=== PATIENT | male | born 1965 | race Caucasian/White ===

== ENCOUNTER 2017-07-29 11:34 | Inpatient (IN) | payer OTHER ==
[2017-07-29 13:21] VITALS: BMI 23.9
--- NOTE | 2017-07-29 15:41 | HP ---
CIWA Score - CIWA Score Nausea/Vomitin Muscle Tremors: 5 Anxiety: 4-Mod. Anxious/Guarded Agitation: 5 Paroxysmal Sweats: 1-Minimal Palms Moist Orientation: 0-Oriented Tacttile Disturbances: 1-Very Mild Itch/Numbness Auditory Disturbances: 0-None Visual Disturbances: 0-None Headache: 2-Mild CIWA-Ar Total Score: 20 Admission ROS BHS - HPI Chief Complaint: withdrawal sx Allergies/Adverse Reactions: Allergies Allergy/AdvReac Type Severity Reaction Status Date / Time No Known Allergies Allergy Verified 07/29/17 15:05 History of Present Illness: 52 years old male with long history of alcohol nicotine dependence has gerd anxiety and depression is admitted to detox Exam Limitations: No Limitations - Ebola screening Have you traveled outside of the country in the last 21 days: No Have you had contact with anyone from an Ebola affected area: No Have you been sick,other than usual withdrawal symptoms: No Do you have a fever: No - Review of Systems Constitutional: Loss of Appetite, Changes in sleep, Unintentional Wgt. Loss, Unexplained wgt Loss EENT: reports: Blurred Vision (eye glasses) Respiratory: reports: No Symptoms reported Cardiac: reports: No Symptoms Reported GI: reports: Nausea, Poor Appetite, Poor Fluid Intake, Vomiting, Indigestion, Abdominal cramping : reports: No Symptoms Reported Musculoskeletal: reports: No Symptoms Reported Integumentary: reports: No Symptoms Reported Neuro: reports: Tremors Endocrine: reports: No Symptoms Reported Hematology: reports: No Symptoms Reported Psychiatric: reports: Judgement Intact, Orientated x3, Anxious, Depressed Other Systems: Reviewed and Negative Patient History - Patient Medical History Hx Anemia: No Hx Asthma: No Hx Chronic Obstructive Pulmonary Disease (COPD): No Hx Cancer: No Hx Cardiac Disorders: No Hx Congestive Heart Failure: No Hx Hypertension: No Hx Hypercholesterolemia: No Hx Pacemaker: No HX Cerebrovascular Accident: No Hx Seizures: No Hx Dementia: No Hx Diabetes: No Hx Gastrointestinal Disorders: Yes (acid reflux) Hx Liver Disease: No Hx Genitourinary Disorders: No Hx Sexually Transmitted Disorders: No Hx Renal Disease (ESRD): No Hx Thyroid Disease: No Hx Human Immunodeficiency Virus (HIV): No Hx Hepatitis C: No Hx Depression: Yes Hx Suicide Attempt: No Hx Bipolar Disorder: No Hx Schizophrenia: No - Patient Surgical History Past Surgical History: No Hx Neurologic Surgery: No Hx Cataract Extraction: No Hx Cardiac Surgery: No Hx Lung Surgery: No Hx Breast Surgery: No Hx Breast Biopsy: No Hx Abdominal Surgery: No Hx Appendectomy: No Hx Cholecystectomy: No Hx Genitourinary Surgery: No Hx Orthopedic Surgery: No - PPD History Previous Implant?: Yes Documented Results: Negative w/proof Implanted On Prior [facility] Admission?: Yes Date: 11/15/15 Results: 0 mm PPD to be Administered?: Yes - Smoking Cessation Smoking history: Current every day smoker Have you smoked in the past 12 months: Yes Aproximately how many cigarettes per day: 10 Cigars Per Day: 0 Hx Chewing Tobacco Use: No Initiated information on smoking cessation: Yes 'Breaking Loose' booklet given: 07/29/17 - Substance & Tx. History Hx Alcohol Use: Yes Hx Substance Use: Yes Substance Use Type: Alcohol, Cocaine Hx Substance Use Treatment: Yes (06/2017 [facility]) - Substances Abused Cocaine Route: Inhalation Frequency: 1-3 times last 30 days Amount used: $20-30 Age of first use: 27 Date of Last Use: 07/27/17 Alcohol-vodka Route: Oral Frequency: Daily Amount used: 2 pts. Age of first use: 20 Date of Last Use: 07/28/17 Admission Physical Exam BHS - Vital Signs Vital Signs: Vital Signs - 24 hr 07/29/17 13:19 Temperature 97.9 F Pulse Rate 77 Respiratory 20 Rate Blood Pressure 151/91 - Physical General Appearance: Yes: Appropriately Dressed, Moderate Distress, Thin, Tremorous, Irritable, Sweating, Anxious HEENTM: Yes: Hearing grossly Normal, Normal ENT Inspection, Normocephalic, Normal Voice Respiratory: Yes: Chest Non-Tender, Lungs Clear, Normal Breath Sounds, No Respiratory Distress, No Accessory Muscle Use Neck: Yes: Supple, Trachea in good position Breast: Yes: Breasts Symetrical Cardiology: Yes: Regular Rhythm, Regular Rate, S1, S2 Abdominal: Yes: Normal Bowel Sounds, Non Tender, Soft Genitourinary: Yes: Within Normal Limits Back: Yes: Normal Inspection Musculoskeletal: Yes: full range of Motion, Gait Steady Extremities: Yes: Normal Range of Motion, Non-Tender, Tremors Neurological: Yes: Alert, Motor Strength 5/5, Normal Response, Depressed Affect Integumentary: Yes: Warm Lymphatic: Yes: Within Normal Limits - Diagnostic (1) Anxiety and depression Current Visit: Yes Status: Acute (2) Alcohol dependence with uncomplicated withdrawal Current Visit: Yes Status: Acute (3) GERD (gastroesophageal reflux disease) Current Visit: Yes Status: Chronic Qualifiers: Esophagitis presence: without esophagitis Qualified Code(s): K21.9 - Gastro -esophageal reflux disease without esophagitis (4) Nicotine dependence Current Visit: Yes Status: Acute Qualifiers: Nicotine product type: cigarettes Substance use status: in withdrawal Qualified Code(s): F17.213 - Nicotine dependence, cigarettes, with withdrawal Cleared for Admission S - Detox or Rehab [facility] Level of Care: Medically Managed Detox Regimen/Protocol: Librium [facility] Breath Alcohol Content Breath Alcohol Content: 0 Urine Drug Screen - Results Drug Screen Negative: No Urine Drug Screen Results: SOURAV-Cocaine
[2017-07-29] MEDS ORDERED: MENTHOL/PHENOL 1 EACH UD MM PRN (15:50)
[2017-07-29] MEDS ORDERED: MAGNESIUM CITRATE 300 ML BOTTLE PO PRN (15:50)
[2017-07-29] MEDS ORDERED: LOPERAMIDE HCL 2 MG CAPSULE PO PRN (15:50)
[2017-07-29] MEDS ORDERED: MAGNESIUM HYDROX 2400MG/30ML ORAL SUSPENSION 30 ML CUP PO PRN (15:50)
[2017-07-29] MEDS ORDERED: NICOTINE POLACRILEX 2 MG GUM BC PRN (15:50)
[2017-07-29] MEDS ORDERED: guaiFENesin/D-METHORPHAN HB 10 ML UNIT-DOSE CUPS PO PRN (15:50)
[2017-07-29] MEDS ORDERED: chlordiazePOXIDE HCL 25 MG CAPSULE PO PRN (15:50)
[2017-07-29] MEDS ORDERED: P-EPHED 60MG/TRIPROLIDI 2.5MG TABLET PO PRN (15:50)
[2017-07-29] MEDS ORDERED: ACETAMINOPHEN 325 MG TABLET (FP) PO PRN (15:50)
[2017-07-29] MEDS: chlordiazePOXIDE HCL 25 MG CAPSULE PO SCH (22:08)
[2017-07-29] MEDS: THIAMINE HCL 100 MG TABLET (FP) PO SCH (22:09)
[2017-07-29] MEDS: RANITIDINE HCL 150 MG TABLET (FP) PO SCH (22:47)
[2017-07-29] MEDS ORDERED: diphenhydrAMINE HCL 25 MG CAPSULE (FP) PO ONE (23:00)
[2017-07-29 23:12] LABS: URINE APPEARANCE TURBID; URINE BILIRUBIN NEGATIVE (NEGATIVE); URINE BLOOD NEGATIVE (NEGATIVE); URINE COLOR YELLOW; URINE GLUCOSE (UA) NEGATIVE (NEGATIVE); URINE KETONE NEGATIVE (NEGATIVE); URINE LEUK ESTERASE NEGATIVE (NEGATIVE); URINE NITRITE NEGATIVE (NEGATIVE); URINE PROTEIN NEGATIVE (NEGATIVE); URINE UROBILINOGEN NEGATIVE mg/dL (0.2-1.0)
[2017-07-30] MEDS: chlordiazePOXIDE HCL 25 MG CAPSULE PO SCH ×4 (06:26→22:05)
--- NOTE | 2017-07-30 09:13 | CONSULT ---
[facility] Psychiatric Consult - Data Date of interview: 07/30/17 Admission source: [facility] Identifying data: This is 52 years old male, single, father of one, homeless, on PA, with long history of alcohol and Nicotine dependence is admitted to detox Substance Abuse History: - Smoking Cessation. Smoking history: Current every day smoker. Have you smoked in the past 12 months: Yes. Aproximately how many cigarettes per day: 10. Cigars Per Day: 0. Hx Chewing Tobacco Use: No. Initiated information on smoking cessation: Yes. 'Breaking Loose' booklet given : 07/29/17. - Substance & Tx. History. Hx Alcohol Use: Yes. Hx Substance Use : Yes. Substance Use Type: Alcohol, Cocaine. Hx Substance Use Treatment: Yes ( 06/2017 [facility]). - Substances Abused. Cocaine. Route: Inhalation. Frequency: 1-3 times last 30 days. Amount used: $20-30. Age of first use: 27. Date of Last Use: 07/27/17. Alcohol-vodka. Route: Oral. Frequency: Daily. Amount used: 2 pts. Age of first use: 20. Date of Last Use: 07/28/17 Medical History: Denies past siginificant medical history. As per chart-GERD Psychiatric History: Patient reports history of anxiety and depression, denies past posychiatric hospitalzation history, reports taking prior to admission: Trazodone 100mg po qhs Physical/Sexual Abuse/Trauma History: Denies Additional Comment: Trazodone 100mg po qhs Mental Status Exam - Mental Status Exam Alert and Oriented to: Person Cognitive Function: Fair Patient Appearance: Unkempt Mood: Sad Affect: Mood Congruent Patient Behavior: Sedated Speech Pattern: Appropriate Voice Loudness: Mildly Soft/Quiet Thought Process: Circumstantial Thought Disorder: Being Controlled Hallucinations: Denies Suicidal Ideation: Denies Homicidal Ideation: Denies Insight/Judgement: Fair Sleep: Difficulty falling asleep Appetite: Fair Muscle strength/Tone: Mild Hypotonicity Gait/Station: Shuffling Additional Comments: Trazodone 100mg po qhs Psychiatric Findings - Problem List ([place] 1, 2,3) (1) Alcohol dependence with uncomplicated withdrawal Current Visit: Yes Status: Acute (2) Anxiety and depression Current Visit: Yes Status: Acute (3) Nicotine dependence Current Visit: Yes Status: Acute Qualifiers: Nicotine product type: cigarettes Substance use status: in withdrawal Qualified Code(s): F17.213 - Nicotine dependence, cigarettes, with withdrawal (4) Depression with anxiety Current Visit: No Status: Acute (5) Drug-induced mood disorder Current Visit: No Status: Acute - Initial Treatment Plan Initial Treatment Plan: Trazodone 100mg po qhs
--- NOTE | 2017-07-30 09:28 | PN ---
S CIWA - CIWA Score Nausea/Vomitin Muscle Tremors: 3 Anxiety: 3 Agitation: 3 Paroxysmal Sweats: 1-Minimal Palms Moist Orientation: 0-Oriented Tacttile Disturbances: 1-Very Mild Itch/Numbness Auditory Disturbances: 1-Very Mild Visual Disturbances: 1-Very Mild Sensitivity Headache: 2-Mild CIWA-Ar Total Score: 18 BHS Progress Note (SOAP) Subjective: ALERT,IRRITABLE,ANXIOUS,INTERRUPTED SLEEP,TREMOR Objective: 07/30/17 09:26 Vital Signs Temperature 98.1 F 07/30/17 06:00 Pulse Rate 76 07/30/17 06:00 Respiratory Rate 18 07/30/17 06:00 Blood Pressure 126/56 07/30/17 06:00 O2 Sat by Pulse Oximetry (%) Laboratory Last Values Urine Color Yellow 07/29/17 22:10 Urine Appearance Turbid 07/29/17 22:10 Urine pH 5.0 (5.0-8.0) 07/29/17 22:10 Ur Specific [place] 1.023 (1.001-1.035) 07/29/17 22:10 Urine Protein Negative (NEGATIVE) 07/29/17 22:10 Urine Glucose (UA) Negative (NEGATIVE) 07/29/17 22:10 Urine Ketones Negative (NEGATIVE) 07/29/17 22:10 Urine Blood Negative (NEGATIVE) 07/29/17 22:10 Urine Nitrite Negative (NEGATIVE) 07/29/17 22:10 Urine Bilirubin Negative (NEGATIVE) 07/29/17 22:10 Urine Urobilinogen Negative mg/dL (0.2-1.0) 07/29/17 22:10 Ur Leukocyte Esterase Negative (NEGATIVE) 07/29/17 22:10 LABS PENDING EKG NSR,NORMAL ECG Assessment: 07/30/17 09:27 WITHDRAWAL SYMPTOM Plan: CONTINUE DETOX
[2017-07-30] MEDS: PRENATAL VITAMINS W/ FOLIC ACID TABLET (FP) PO SCH (10:23)
[2017-07-30 10:24] LABS: CHLORIDE 106 mmol/L (98-107); POTASSIUM 3.9 mmol/L (3.5-5.1); SODIUM 142 mmol/L (136-145)
[2017-07-30] MEDS: RANITIDINE HCL 150 MG TABLET (FP) PO SCH ×2 (10:24→22:04)
[2017-07-30] MEDS: NICOTINE 14 MG/24 HOURS TOPICAL PATCH TD SCH (10:24)
[2017-07-30 10:25] LABS: HEMATOCRIT 40.4 % (35.4-49); HEMOGLOBIN 13.5 GM/dL (11.7-16.9); MCHC 33.4 g/dl (32.0-35.9); MEAN CELL VOLUME 92.8 fl (80-96); PLATELET COUNT 229 K/MM3 (134-434); RBC 4.36 M/mm3 (4.00-5.60); WHITE BLOOD COUNT 8.6 K/mm3 (4.0-10.0)
[2017-07-30 10:39] LABS: ALBUMIN 3.5 g/dl (3.4-5.0); ALK PHOS 69 U/L (45-117); ANION GAP 7 (8-16); BILIRUBIN,TOTAL 1.1 mg/dL (0.2-1.0); BLOOD UREA NITROGEN 13 mg/dL (7-18); CALCIUM 8.6 mg/dL (8.5-10.1); CO2 29 mmol/L (21-32); CREATININE 0.9 mg/dL (0.7-1.3); GLUCOSE,RANDOM 92 mg/dL (74-106); SGOT/AST 15 U/L (15-37); SGPT/ALT 24 U/L (12-78); TOT PROT 6.2 g/dl (6.4-8.2)
--- NOTE | 2017-07-30 11:54 | EKG ---
Test Reason : Blood Pressure : / mmHG Vent. Rate : 092 BPM Atrial Rate : 092 BPM P-R Int : 148 ms QRS Dur : 092 ms QT Int : 354 ms P-R-T Axes : 058 023 062 degrees QTc Int : 437 ms NORMAL SINUS RHYTHM NORMAL ECG NO PREVIOUS ECGS AVAILABLE Confirmed by CORRINA ORTEGA MD ([id number]) on 07/30/2017 11:54:16 AM Referred By: Confirmed By:CORRINA ORTEGA MD
[2017-07-30] MEDS: MAG HYDROX/AL HYDROX/SIMETH 30 ML UNIT-DOSE CUP PO PRN (17:21)
[2017-07-30] MEDS: THIAMINE HCL 100 MG TABLET (FP) PO SCH (22:04)
[2017-07-30] MEDS: traZODone HCL 100 MG TABLET (FP) PO SCH (22:04)
[2017-07-31] MEDS: chlordiazePOXIDE HCL 25 MG CAPSULE PO SCH ×3 (05:56→17:36)
--- NOTE | 2017-07-31 09:44 | PN ---
S CIWA - CIWA Score Nausea/Vomitin Muscle Tremors: 3 Anxiety: 3 Agitation: 3 Paroxysmal Sweats: 1-Minimal Palms Moist Orientation: 0-Oriented Tacttile Disturbances: 1-Very Mild Itch/Numbness Auditory Disturbances: 1-Very Mild Visual Disturbances: 1-Very Mild Sensitivity Headache: 2-Mild CIWA-Ar Total Score: 18 BHS Progress Note (SOAP) Subjective: alert,irritable,anxious,interrupted sleep,tremor Objective: 07/31/17 09:43 Vital Signs Temperature 97.5 F L 07/31/17 06:00 Pulse Rate 79 07/31/17 06:00 Respiratory Rate 18 07/31/17 06:00 Blood Pressure 109/65 07/31/17 06:00 O2 Sat by Pulse Oximetry (%) Laboratory Last Values WBC 8.6 K/mm3 (4.0-10.0) 07/30/17 07:00 RBC 4.36 M/mm3 (4.00-5.60) 07/30/17 07:00 Hgb 13.5 GM/dL (11.7-16.9) 07/30/17 07:00 Hct 40.4 % (35.4-49) 07/30/17 07:00 MCV 92.8 fl (80-96) 07/30/17 07:00 MCH 31.0 pg (25.7-33.7) 07/30/17 07:00 MCHC 33.4 g/dl (32.0-35.9) 07/30/17 07:00 RDW 13.0 % (11.9-15.9) D 07/30/17 07:00 Plt Count 229 K/MM3 (134-434) 07/30/17 07:00 MPV 7.0 fl (7.5-11.1) L 07/30/17 07:00 Sodium 142 mmol/L (136-145) 07/30/17 07:00 Potassium 3.9 mmol/L (3.5-5.1) 07/30/17 07:00 Chloride 106 mmol/L (98-107) 07/30/17 07:00 Carbon Dioxide 29 mmol/L (21-32) 07/30/17 07:00 Anion Gap 7 (8-16) L 07/30/17 07:00 BUN 13 mg/dL (7-18) D 07/30/17 07:00 Creatinine 0.9 mg/dL (0.7-1.3) 07/30/17 07:00 Creat Clearance w eGFR > 60 (>60) 07/30/17 07:00 Random Glucose 92 mg/dL (74-106) 07/30/17 07:00 Calcium 8.6 mg/dL (8.5-10.1) 07/30/17 07:00 Total Bilirubin 1.1 mg/dL (0.2-1.0) H 07/30/17 07:00 AST 15 U/L (15-37) D 07/30/17 07:00 ALT 24 U/L (12-78) D 07/30/17 07:00 Alkaline Phosphatase 69 U/L (45-117) 07/30/17 07:00 Total Protein 6.2 g/dl (6.4-8.2) L 07/30/17 07:00 Albumin 3.5 g/dl (3.4-5.0) 07/30/17 07:00 Urine Color Yellow 07/29/17 22:10 Urine Appearance Turbid 07/29/17 22:10 Urine pH 5.0 (5.0-8.0) 07/29/17 22:10 Ur Specific [place] 1.023 (1.001-1.035) 07/29/17 22:10 Urine Protein Negative (NEGATIVE) 07/29/17 22:10 Urine Glucose (UA) Negative (NEGATIVE) 07/29/17 22:10 Urine Ketones Negative (NEGATIVE) 07/29/17 22:10 Urine Blood Negative (NEGATIVE) 07/29/17 22:10 Urine Nitrite Negative (NEGATIVE) 07/29/17 22:10 Urine Bilirubin Negative (NEGATIVE) 07/29/17 22:10 Urine Urobilinogen Negative mg/dL (0.2-1.0) 07/29/17 22:10 Ur Leukocyte Esterase Negative (NEGATIVE) 07/29/17 22:10 RPR Titer Nonreactive (NONREACTIVE) 07/30/17 07:00 Assessment: 07/31/17 09:43 withdrawal symptom Plan: continue detox
[2017-07-31] MEDS: RANITIDINE HCL 150 MG TABLET (FP) PO SCH ×2 (10:05→21:59)
[2017-07-31] MEDS: PRENATAL VITAMINS W/ FOLIC ACID TABLET (FP) PO SCH (10:05)
[2017-07-31] MEDS: MAG HYDROX/AL HYDROX/SIMETH 30 ML UNIT-DOSE CUP PO PRN ×2 (10:06→22:02)
[2017-07-31] MEDS: NICOTINE 14 MG/24 HOURS TOPICAL PATCH TD SCH (10:06)
[2017-07-31] MEDS: chlordiazePOXIDE 5 MG CAPSULE PO SCH (21:59)
[2017-07-31] MEDS: THIAMINE HCL 100 MG TABLET (FP) PO SCH (21:59)
[2017-07-31] MEDS: traZODone HCL 100 MG TABLET (FP) PO SCH (22:01)
[2017-08-01] MEDS: chlordiazePOXIDE 5 MG CAPSULE PO SCH ×3 (05:42→17:37)
[2017-08-01] MEDS: MAG HYDROX/AL HYDROX/SIMETH 30 ML UNIT-DOSE CUP PO PRN (05:43)
--- NOTE | 2017-08-01 09:03 | PN ---
BHS Progress Note (SOAP) Subjective: ALERT,IRRITABLE,ANXIOUS,INTERRUPTED SLEEP,PAIN IN THE BODY Objective: 08/01/17 09:02 Vital Signs Temperature 97.9 F 08/01/17 06:43 Pulse Rate 65 08/01/17 06:43 Respiratory Rate 18 08/01/17 06:43 Blood Pressure 113/76 08/01/17 06:43 O2 Sat by Pulse Oximetry (%) Assessment: 08/01/17 09:02 WITHDRAWAL SYMPTOM Plan: CONTINUE DETOX
[2017-08-01] MEDS: RANITIDINE HCL 150 MG TABLET (FP) PO SCH ×2 (10:10→22:06)
[2017-08-01] MEDS: PRENATAL VITAMINS W/ FOLIC ACID TABLET (FP) PO SCH (10:10)
[2017-08-01] MEDS: NICOTINE 14 MG/24 HOURS TOPICAL PATCH TD SCH (10:10)
[2017-08-01] MEDS: chlordiazePOXIDE HCL 10 MG CAPSULE PO SCH (22:06)
[2017-08-01] MEDS: THIAMINE HCL 100 MG TABLET (FP) PO SCH (22:06)
[2017-08-01] MEDS: traZODone HCL 100 MG TABLET (FP) PO SCH (22:06)
[2017-08-02] MEDS: chlordiazePOXIDE HCL 10 MG CAPSULE PO SCH ×3 (05:46→18:29)
[2017-08-02] MEDS: MAG HYDROX/AL HYDROX/SIMETH 30 ML UNIT-DOSE CUP PO PRN (05:46)
--- NOTE | 2017-08-02 08:38 | PN ---
S Progress Note (SOAP) Subjective: mild tremor less sweat alert oriented x 3 tolerates food and fluid well Objective: 08/02/17 08:36 Vital Signs Temperature 97.1 F L 08/02/17 06:00 Pulse Rate 67 08/02/17 06:00 Respiratory Rate 18 08/02/17 06:00 Blood Pressure 116/69 08/02/17 06:00 O2 Sat by Pulse Oximetry (%) Laboratory Last Values WBC 8.6 K/mm3 (4.0-10.0) 07/30/17 07:00 RBC 4.36 M/mm3 (4.00-5.60) 07/30/17 07:00 Hgb 13.5 GM/dL (11.7-16.9) 07/30/17 07:00 Hct 40.4 % (35.4-49) 07/30/17 07:00 MCV 92.8 fl (80-96) 07/30/17 07:00 MCH 31.0 pg (25.7-33.7) 07/30/17 07:00 MCHC 33.4 g/dl (32.0-35.9) 07/30/17 07:00 RDW 13.0 % (11.9-15.9) D 07/30/17 07:00 Plt Count 229 K/MM3 (134-434) 07/30/17 07:00 MPV 7.0 fl (7.5-11.1) L 07/30/17 07:00 Sodium 142 mmol/L (136-145) 07/30/17 07:00 Potassium 3.9 mmol/L (3.5-5.1) 07/30/17 07:00 Chloride 106 mmol/L (98-107) 07/30/17 07:00 Carbon Dioxide 29 mmol/L (21-32) 07/30/17 07:00 Anion Gap 7 (8-16) L 07/30/17 07:00 BUN 13 mg/dL (7-18) D 07/30/17 07:00 Creatinine 0.9 mg/dL (0.7-1.3) 07/30/17 07:00 Creat Clearance w eGFR > 60 (>60) 07/30/17 07:00 Random Glucose 92 mg/dL (74-106) 07/30/17 07:00 Calcium 8.6 mg/dL (8.5-10.1) 07/30/17 07:00 Total Bilirubin 1.1 mg/dL (0.2-1.0) H 07/30/17 07:00 AST 15 U/L (15-37) D 07/30/17 07:00 ALT 24 U/L (12-78) D 07/30/17 07:00 Alkaline Phosphatase 69 U/L (45-117) 07/30/17 07:00 Total Protein 6.2 g/dl (6.4-8.2) L 07/30/17 07:00 Albumin 3.5 g/dl (3.4-5.0) 07/30/17 07:00 Urine Color Yellow 07/29/17 22:10 Urine Appearance Turbid 07/29/17 22:10 Urine pH 5.0 (5.0-8.0) 07/29/17 22:10 Ur Specific [place] 1.023 (1.001-1.035) 07/29/17 22:10 Urine Protein Negative (NEGATIVE) 07/29/17 22:10 Urine Glucose (UA) Negative (NEGATIVE) 07/29/17 22:10 Urine Ketones Negative (NEGATIVE) 07/29/17 22:10 Urine Blood Negative (NEGATIVE) 07/29/17 22:10 Urine Nitrite Negative (NEGATIVE) 07/29/17 22:10 Urine Bilirubin Negative (NEGATIVE) 07/29/17 22:10 Urine Urobilinogen Negative mg/dL (0.2-1.0) 07/29/17 22:10 Ur Leukocyte Esterase Negative (NEGATIVE) 07/29/17 22:10 RPR Titer Nonreactive (NONREACTIVE) 07/30/17 07:00 lab noted Assessment: 08/02/17 08:37 mild withdrawal sx Plan: medically supervised detox
[2017-08-02] MEDS: RANITIDINE HCL 150 MG TABLET (FP) PO SCH ×2 (11:52→22:35)
[2017-08-02] MEDS: PRENATAL VITAMINS W/ FOLIC ACID TABLET (FP) PO SCH (11:52)
[2017-08-02] MEDS: NICOTINE 14 MG/24 HOURS TOPICAL PATCH TD SCH (11:52)
[2017-08-02] MEDS: traZODone HCL 100 MG TABLET (FP) PO SCH (22:35)
[2017-08-02] MEDS: THIAMINE HCL 100 MG TABLET (FP) PO SCH (22:35)
[2017-08-03 06:34] VITALS: BP 128/79; PULSE 71; TEMP 98.1
--- NOTE | 2017-08-03 08:22 | DS ---
[facility] Detox Discharge Summary Admission Date: 07/29/17 Discharge Date: 08/03/17 - History Present History: Alcohol Dependence Additional Comments: follow up with after care program as arrangement Pertinent Past History: nicotine dependence anxiety and depression - Physical Exam Results Vital Signs: Vital Signs Temperature 98.1 F 08/03/17 06:00 Pulse Rate 71 08/03/17 06:00 Respiratory Rate 18 08/03/17 06:00 Blood Pressure 128/79 08/03/17 06:00 O2 Sat by Pulse Oximetry (%) Pertinent Admission Physical Exam Findings: withdrawal symptom and sign - Treatment Hospital Course: Detox Protocol Followed, Detoxed Safely, Responded well, Discharged Condition Good, Rehab Referral Accepted Patient has Accept[facility] - Medication Discharge Medications: Ambulatory Orders traZODone HCL [Desyrel -] 100 mg PO HS #30 tablet 07/30/17 - Diagnosis (1) Alcohol dependence with uncomplicated withdrawal Current Visit: Yes Status: Acute (2) Anxiety and depression Current Visit: Yes Status: Suspected (3) Nicotine dependence Current Visit: Yes Status: Acute Qualifiers: Nicotine product type: cigarettes Substance use status: in withdrawal Qualified Code(s): F17.213 - Nicotine dependence, cigarettes, with withdrawal (4) GERD (gastroesophageal reflux disease) Current Visit: Yes Status: Chronic Qualifiers: Esophagitis presence: without esophagitis Qualified Code(s): K21.9 - Gastro -esophageal reflux disease without esophagitis - AMA Did Patient Leave Against Medical Advice: No
[2017-08-03] MEDS: PRENATAL VITAMINS W/ FOLIC ACID TABLET (FP) PO SCH (10:26)
[2017-08-03] MEDS: NICOTINE 14 MG/24 HOURS TOPICAL PATCH TD SCH (10:27)
[2017-08-03] MEDS: RANITIDINE HCL 150 MG TABLET (FP) PO SCH (10:27)
== END 2017-08-03 10:55 | disposition other institution (70) | DRG 775 ==
LOC: YASAS 11:34 → Y6N 15:49
PROVIDERS: ADMIT Internal Medicine; ATTEND Internal Medicine
PROC: HZ2ZZZZ Detoxification Services for Substance Abuse Treatment (ICD-10-PCS; principal; 2017-07-29)
DX: F10.230 Alcohol dependence with withdrawal, uncomplicated (principal); F17.213 Nicotine dependence, cigarettes, with withdrawal; F41.8 Other specified anxiety disorders; F19.24 Other psychoactive substance dependence with psychoactive substance-induced mood disorder; K21.9 Gastro-esophageal reflux disease without esophagitis
CPT/HCPCS: 36415; 80053; 81003; 85027; 86593; 93005; 93010

== ENCOUNTER 2017-08-03 11:16 | Inpatient (IN) | payer OTHER ==
--- NOTE | 2017-08-03 12:53 | HP ---
[facility] Re[facility] Assess/Revision - Admission History Admitted to Rehab from: [facility] Date of Admission to Rehab: 08/03/17 - Vital signs Vital Signs: Vital Signs Period Temp Pulse Resp BP Sys/Pearce Pulse Ox Last 24 Hr 98.3 F 85 20 120/85 - Findings Detox History & Physical reviewed: Yes Concur with findings: Yes Comments/Additional Findings: for rehab as protocol Inpatient Rehab Admission - Initial Determination Are CD services needed?: Yes Free of communicable disease: Yes Not in need of hospitalization: Yes - Rehab Admission Criteria Previous failed treatment: Yes Poor recovery environment: Yes Comorbidities: Yes Lacks judgement: No Patient is meeting Inpatient Rehab admission criteria:: Yes
[2017-08-03] MEDS ORDERED: P-EPHED 60MG/TRIPROLIDI 2.5MG TABLET PO PRN (12:54)
[2017-08-03] MEDS ORDERED: IBUPROFEN 400 MG TABLET (FP) PO PRN (12:54)
[2017-08-03] MEDS ORDERED: guaiFENesin/D-METHORPHAN HB 10 ML UNIT-DOSE CUPS PO PRN (12:54)
[2017-08-03] MEDS ORDERED: LOPERAMIDE HCL 2 MG CAPSULE PO PRN (12:54)
[2017-08-03] MEDS ORDERED: ACETAMINOPHEN 325 MG TABLET (FP) PO PRN (12:54)
[2017-08-03] MEDS ORDERED: MENTHOL/PHENOL 1 EACH UD MM PRN (12:54)
[2017-08-03] MEDS ORDERED: MAGNESIUM HYDROX 2400MG/30ML ORAL SUSPENSION 30 ML CUP PO PRN (12:54)
[2017-08-03] MEDS ORDERED: MAGNESIUM CITRATE 300 ML BOTTLE PO PRN (12:54)
[2017-08-03] MEDS: RANITIDINE HCL 150 MG TABLET (FP) PO SCH (21:33)
[2017-08-03] MEDS: THIAMINE HCL 100 MG TABLET (FP) PO SCH (21:33)
[2017-08-03] MEDS: traZODone HCL 100 MG TABLET (FP) PO SCH (21:33)
[2017-08-04] MEDS: RANITIDINE HCL 150 MG TABLET (FP) PO SCH ×2 (11:00→21:28)
[2017-08-04] MEDS: PRENATAL VITAMINS W/ FOLIC ACID TABLET (FP) PO SCH (11:00)
[2017-08-04] MEDS: NICOTINE 21 MG/24 HOURS TOPICAL PATCH TD SCH (11:08)
--- NOTE | 2017-08-04 14:19 | HP ---
Psychiatrist Admission - Data Date of interview: 08/04/17 Admission source: Transfer from [address] [place] [address]. Identifying data: First admission to [address] for this 52 y/o male seeking rehabilitation treatment for alcohol and cocaine dependence.Patient is single,a father of one,homeless and currently employed. Medical History: Patient endorses good general health. Psychiatric History: Patient denies. Physical/Sexual Abuse/Trauma History: Patient denies. Additional Comment: Urine Drug Screen Results: SOURAV-Cocaine (noted on admission) . History of addictions discussed with patient in this interview.Details as reported in this [facility] report from admission to detox on 07/27/17 : Smoking history: Current every day smoker. Have you smoked in the past 12 months: Yes. Aproximately how many cigarettes per day: 10. Cigars Per Day: 0. Hx Chewing Tobacco Use: No. Initiated information on smoking cessation: Yes. 'Breaking Loose' booklet given: 07/29/17. - Substance & Tx. History. Hx Alcohol Use: Yes. Hx Substance Use: Yes. Substance Use Type: Alcohol, Cocaine. Hx Substance Use Treatment: Yes (06/2017 [facility]). - Substances Abused. Cocaine. Route: Inhalation. Frequency: 1-3 times last 30 days. Amount used: $20-30. Age of first use: 27. Date of Last Use: 07/27/17. Alcohol-vodka. Route: Oral. Frequency: Daily. Amount used: 2 pts. Age of first use: 20. Date of Last Use: 07/28/17 Vital Signs: Vital Signs - 24 hr 08/04/17 08/04/17 08/04/17 00:30 03:30 06:51 Temperature 97.9 F Pulse Rate 69 Respiratory 20 18 18 Rate Blood Pressure 143/80 Allergies/Adverse Reactions: Allergies Allergy/AdvReac Type Severity Reaction Status Date / Time No Known Allergies Allergy Verified 07/29/17 15:05 - Substance Abuse/Tx History Hx Alcohol Use: Yes Hx Substance Use: Yes (smokes 1/2 pack of cigarettes/day.) Substance Use Type: Alcohol (consumes 2 pints of vodka daily.Last use on .), Cocaine (Patient reports occasional use - few times a month -since age 27.Last use : 07/27/17.) Hx Substance Use Treatment: Yes (Recently discharged from [facility].Already known to [facility].) Mental Status Exam - Mental Status Exam Alert and Oriented to: Time, Place, Person Cognitive Function: Good Patient Appearance: Well Groomed (tattoos on both forearms) Mood: Euthymic Affect: Appropriate, Normal Range Patient Behavior: Appropriate, Cooperative Speech Pattern: Clear, Appropriate Voice Loudness: Normal Thought Process: Intact, Goal Oriented Thought Disorder: Not Present Hallucinations: Denies Suicidal Ideation: Denies Homicidal Ideation: Denies Insight/Judgement: Fair Sleep: Well Appetite: Good Muscle strength/Tone: Normal Gait/Station: Normal Psychiatric Findings - Problem List ([place] 1, 2,3) (1) Alcohol dependence with uncomplicated withdrawal Current Visit: Yes Status: Acute (2) Cocaine abuse Current Visit: Yes Status: Acute (3) Nicotine dependence Current Visit: Yes Status: Acute Qualifiers: Nicotine product type: cigarettes Substance use status: in withdrawal Qualified Code(s): F17.213 - Nicotine dependence, cigarettes, with withdrawal - Initial Treatment Plan Initial Treatment Plan: Records revisited.Psychoeducation and support provided in this session.Orientation to unit.Patient is advised to attend daily therapy groups,community meetings and recreational activities.Mr Carbalol agrees.Monitor hospital course.
[2017-08-04] MEDS: traZODone HCL 100 MG TABLET (FP) PO SCH (21:27)
[2017-08-04] MEDS: THIAMINE HCL 100 MG TABLET (FP) PO SCH (21:27)
[2017-08-05] MEDS: RANITIDINE HCL 150 MG TABLET (FP) PO SCH ×2 (10:57→21:36)
[2017-08-05] MEDS: NICOTINE 21 MG/24 HOURS TOPICAL PATCH TD SCH (10:57)
[2017-08-05] MEDS: PRENATAL VITAMINS W/ FOLIC ACID TABLET (FP) PO SCH (10:57)
[2017-08-05] MEDS: THIAMINE HCL 100 MG TABLET (FP) PO SCH (21:35)
[2017-08-05] MEDS: traZODone HCL 50 MG TABLET (FP) PO SCH (21:35)
[2017-08-06] MEDS: PRENATAL VITAMINS W/ FOLIC ACID TABLET (FP) PO SCH (09:57)
[2017-08-06] MEDS: NICOTINE 21 MG/24 HOURS TOPICAL PATCH TD SCH (09:57)
[2017-08-06] MEDS: RANITIDINE HCL 150 MG TABLET (FP) PO SCH ×2 (09:57→21:25)
[2017-08-06] MEDS: THIAMINE HCL 100 MG TABLET (FP) PO SCH (21:25)
[2017-08-06] MEDS: traZODone HCL 50 MG TABLET (FP) PO SCH (21:26)
[2017-08-06] MEDS: MAG HYDROX/AL HYDROX/SIMETH 30 ML UNIT-DOSE CUP PO PRN (21:47)
[2017-08-07] MEDS: RANITIDINE HCL 150 MG TABLET (FP) PO SCH ×2 (10:04→21:16)
[2017-08-07] MEDS: PRENATAL VITAMINS W/ FOLIC ACID TABLET (FP) PO SCH (10:05)
[2017-08-07] MEDS: NICOTINE 21 MG/24 HOURS TOPICAL PATCH TD SCH (10:05)
[2017-08-07] MEDS: hydrOXYzine PAMOATE 50 MG CAPSULE (FP) PO PRN ×2 (10:06→21:16)
[2017-08-07] MEDS: MAG HYDROX/AL HYDROX/SIMETH 30 ML UNIT-DOSE CUP PO PRN ×2 (10:06→21:16)
[2017-08-07] MEDS: THIAMINE HCL 100 MG TABLET (FP) PO SCH (21:15)
[2017-08-07] MEDS: traZODone HCL 50 MG TABLET (FP) PO SCH (21:15)
[2017-08-08] MEDS: RANITIDINE HCL 150 MG TABLET (FP) PO SCH ×2 (10:05→21:19)
[2017-08-08] MEDS: NICOTINE 21 MG/24 HOURS TOPICAL PATCH TD SCH (10:05)
[2017-08-08] MEDS: PRENATAL VITAMINS W/ FOLIC ACID TABLET (FP) PO SCH (10:05)
[2017-08-08] MEDS: THIAMINE HCL 100 MG TABLET (FP) PO SCH (21:19)
[2017-08-08] MEDS: MAG HYDROX/AL HYDROX/SIMETH 30 ML UNIT-DOSE CUP PO PRN (21:20)
[2017-08-08] MEDS: traZODone HCL 50 MG TABLET (FP) PO SCH (22:34)
[2017-08-09] MEDS: hydrOXYzine PAMOATE 50 MG CAPSULE (FP) PO PRN (09:56)
[2017-08-09] MEDS: PRENATAL VITAMINS W/ FOLIC ACID TABLET (FP) PO SCH (09:56)
[2017-08-09] MEDS: NICOTINE 21 MG/24 HOURS TOPICAL PATCH TD SCH (09:56)
[2017-08-09] MEDS: RANITIDINE HCL 150 MG TABLET (FP) PO SCH ×2 (09:56→22:02)
[2017-08-09] MEDS: traZODone HCL 50 MG TABLET (FP) PO SCH (22:01)
[2017-08-09] MEDS: THIAMINE HCL 100 MG TABLET (FP) PO SCH (22:01)
--- NOTE | 2017-08-10 06:24 | PN ---
Psychiatric Progress Note Vital Signs: Vital Signs Period Temp Pulse Resp BP Sys/Pearce Pulse Ox Last 24 Hr 98.3 F 88 18-18 110/82 Date of Session: 08/10/17 Chief Complaint:: Discharge Note HPI: Patient addressing Alcohol and Cocaine Dependence comorbid with Nicotine Dependence ROS: GERD Current Medications: Active Medications Generic Name Dose Route Start Last Admin Trade Name Freq PRN Reason Stop Dose Admin Acetaminophen 650 mg 08/03/17 12:54 Tylenol - PO Q4H PRN FEVER Al Hydroxide/Mg Hydroxide 30 ml 08/03/17 12:54 08/08/17 21:20 Mylanta Oral Suspension - PO 30 ml Q6H PRN Administration DYSPEPSIA Eucalyptus/Menthol/Phenol/Sorbitol 1 each 08/03/17 12:54 Cepastat Lozenge - MM Q4H PRN SORE THROAT Guaifenesin 10 ml 08/03/17 12:54 Robitussin Dm - PO Q6H PRN COUGH Hydroxyzine Pamoate 50 mg 08/03/17 12:54 08/09/17 09:56 Vistaril - PO 50 mg Q4H PRN Administration AGITATION Ibuprofen 400 mg 08/03/17 12:54 Motrin - PO Q6H PRN Pain Level 4-6 Loperamide HCl 4 mg 08/03/17 12:54 Imodium - PO Q6H PRN DIARRHEA Magnesium Citrate 300 ml 08/03/17 12:54 Citroma - PO Q48H PRN CONSTIPATION Magnesium Hydroxide 30 ml 08/03/17 12:54 Milk Of Magnesia - PO DAILY PRN CONSTIPATION Nicotine 21 mg 08/04/17 10:00 08/09/17 09:56 Nicoderm Patch - TD 21 mg DAILY RON Administration Multivit/Folic Acid/Iron 1 tab 08/04/17 10:00 08/09/17 09:56 Vitamins ([facility]) - PO 1 tab DAILY RON Administration Pseudoephedrine/Triprolidine 1 combo 08/03/17 12:54 Actifed - PO TID PRN NASAL CONGESTION Ranitidine HCl 150 mg 08/03/17 22:00 08/09/17 22:02 Zantac - PO 150 mg BID RON Administration Thiamine HCl 100 mg 08/03/17 22:00 08/09/17 22:01 Vitamin B1 - PO 100 mg HS RON Administration Trazodone HCl 150 mg 08/05/17 22:00 08/09/17 22:01 Desyrel - PO 150 mg HS RON Administration Current Side Effect: No Lab tests ordered: Yes Lab tests reviewed: Yes Provider note:: Patient has completed this program today. He has partially met his treatment goals and will continue to address his isssues in outpatient treatment at [facility]. 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 He is stable for discharge today Total face to face time:: 35 Mental Status Exam - Mental Status Exam Alert and Oriented to: Time, Place, Person Cognitive Function: Fair Mood: Hopeful, Euthymic Affect: Appropriate Patient Behavior: Cooperative Speech Pattern: Clear Voice Loudness: Normal Thought Process: Intact, Goal Oriented Thought Disorder: Not Present Hallucinations: Denies Suicidal Ideation: Denies Homicidal Ideation: Denies Insight/Judgement: Fair Sleep: Well Appetite: Good Muscle strength/Tone: Normal Gait/Station: Normal Psychiatric Treatment Plan - Problem List (1) Alcohol dependence Current Visit: Yes (2) Cocaine abuse Current Visit: Yes (3) Nicotine dependence Current Visit: Yes Qualifiers: Nicotine product type: cigarettes Substance use status: in withdrawal Qualified Code(s): F17.213 - Nicotine dependence, cigarettes, with withdrawal Initial treatment plan: Patient is discharged today and will be referred to [facility] for adjunct faculty for medical terminology residential treatment (4) GERD (gastroesophageal reflux disease) Current Visit: No Qualifiers: Esophagitis presence: without esophagitis Qualified Code(s): K21.9 - Gastro -esophageal reflux disease without esophagitis Initial treatment plan: Patient is discharged today and referred to [facility] for outpatient treament
[2017-08-10 06:53] VITALS: BP 112/83; PULSE 78; TEMP 96.5
== END 2017-08-10 09:00 | disposition home or self-care (01) | DRG 772 ==
LOC: YASAS 11:16 → Y3W 11:18
PROVIDERS: ADMIT Psychiatry & Neurology Psychiatry; ATTEND Psychiatry & Neurology Psychiatry
PROC: HZ42ZZZ Group Counseling for Substance Abuse Treatment, Cognitive-Behavioral (ICD-10-PCS; principal; 2017-08-03)
DX: F10.20 Alcohol dependence, uncomplicated (principal); F14.20 Cocaine dependence, uncomplicated; F17.210 Nicotine dependence, cigarettes, uncomplicated; K21.9 Gastro-esophageal reflux disease without esophagitis